=== PATIENT | female | born 1955 | race Caucasian/White ===

== ENCOUNTER 2017-01-08 04:44 | Emergency (ER) | payer MEDICARE, MEDICAID ==
[~2017-01-08] VITALS: Ht 152.4 cm; Wt 50.0 kg
[2017-01-08 04:56] VITALS: Ht 152.4 cm; Wt 50.0 kg
[2017-01-08 05:56] LABS: ADD SCAN DIFF NO
[2017-01-08 06:06] LABS: BASOPHILS % 0.3 % (0.0-2.0); EOSINOPHILS # 0.1 10^3/ul (0.0-0.5); EOSINOPHILS % 1.6 % (0.0-7.0); HEMATOCRIT 40.3 % (37.0-47.0); HEMOGLOBIN 13.6 g/dl (12.0-16.0); LYMPHOCYTES # 2.8 10^3/ul (0.8-2.9); LYMPHOCYTES % 31.9 % (15.0-51.0); MEAN CORPUSCULAR HEMOGLOBIN 31.6 pg (29.0-33.0); MEAN CORPUSCULAR HGB CONC 33.7 g/dl (32.0-37.0); MEAN CORPUSCULAR VOLUME 93.5 fl (82.0-101.0); MEAN PLATELET VOLUME 10.3 fl (7.4-10.4); MONOCYTE # 0.5 10^3/ul (0.3-0.9); MONOCYTES % 6.2 % (0.0-11.0); NEUTROPHIL # 5.2 10^3/ul (1.6-7.5); NEUTROPHILS % 59.8 % (39.0-77.0); PLATELET COUNT 268 10^3/UL (140-415); RED BLOOD COUNT 4.31 10^6/ul (4.20-5.40); RED CELL DISTRIBUTION WIDTH 12.5 % (11.5-14.5); WHITE BLOOD COUNT 8.7 10^3/ul (4.8-10.8)
[2017-01-08 06:18] LABS: INR 0.95; PROTIME 12.7 Sec (12.2-14.2)
[2017-01-08 06:19] LABS: PARTIAL THROMBOPLASTIN TIME 30.8 Sec (25.0-35.0)
[2017-01-08 06:23] LABS: ANION GAP 13 (8-16); BLOOD UREA NITROGEN 23 mg/dl (7-20); CALCIUM 9.4 mg/dl (8.4-10.2); CARBON DIOXIDE 27 mmol/L (21-31); CHLORIDE 105 mmol/L (97-110); CREATININE 0.77 mg/dl (0.44-1.00); GLUCOSE 109 mg/dl (70-220); POTASSIUM 3.9 mmol/L (3.5-5.1); SODIUM 141 mmol/L (135-144)
[2017-01-08] MEDS ORDERED: MIRT15TA5 PO (06:37)
[2017-01-08] MEDS ORDERED: QUET25TA33 PO (06:37)
[2017-01-08] MEDS ORDERED: CLON0.5T4 PO (06:37)
[2017-01-08] MEDS ORDERED: GABA300C16 PO (06:37)
[2017-01-08] MEDS ORDERED: CARB1TAB14 PO (06:37)
[2017-01-08] MEDS ORDERED: ROPI1TAB PO (06:37)
[2017-01-08] MEDS ORDERED: RASA0.5T PO (06:37)
[2017-01-08] MEDS ORDERED: BUPR300T36 PO (06:37)
[2017-01-08] MEDS ORDERED: AMAN100C65 PO (06:37)
[2017-01-08] MEDS ORDERED: [UNRECOGNIZED DRUG - CODE] PO (06:37)
[2017-01-08 06:50] LABS: TROPONIN-I < 0.012 ng/ml (0.00-0.12)
--- NOTE | 2017-01-08 07:10 | ERD ---
ER Documentation Chief Complaint Date/Time DATE: 01/08/17 TIME: 07:04 Chief Complaint left chest pain radiating to left arm HPI Patient is a 61-year-old female who presents with gradual onset, intermittent, moderate paresthesia to the left arm for the last 3 months. The patient reports that for the last 8 months, she has felt weak on her left side. She reports that she intermittently gets paresthesias in her left leg over the last 3 months, and also in the left arm. She reports that last night at 11:00 she started having paresthesias in the hand and forearm of her left arm. She denies any acute weakness to the left side of her body. She denies any change in her speech. She denies vertigo. The patient also reports having palpitations and a poorly described chest discomfort that lasted 1 hour from 11 PM to 12 AM last night. The patient has had approximately 5 visits to [facility] in the last few months for similar symptoms. Workups have been negative. Her symptoms have been attributed to anxiety. The patient currently endorses anxiety. The patient denies shortness of breath, denies vomiting. She does report nausea. ROS All systems reviewed and are negative except as per history of present illness. Medications Home Meds Reported Medications Ropinirole Hcl* (Ropinirole Hcl*) 1 Mg Tablet, 1 MG PO Q4, TAB 01/08/17 Rasagiline Mesylate* (Azilect*) 0.5 Mg Tablet, 0.5 MG PO DAILY, TAB 01/08/17 Quetiapine Fumarate* (Quetiapine Fumarate*) 25 Mg Tablet, 25 MG PO HS, TAB 01/08/17 Mirtazapine* (Mirtazapine*) 15 Mg Tablet, 15 MG PO HS, TAB 01/08/17 Gabapentin* (Gabapentin*) 300 Mg Capsule, 300 MG PO DAILY, #60 CAP 01/08/17 Clonazepam* (Clonazepam*) 0.5 Mg Tablet, 0.5 MG PO BID, TAB 01/08/17 Wcogpzrfe-Hivrtoff-Rlgcpjnmfq (Stalevo 150) 37.5-200-150 Mg Tablet, 1 EACH PO BID, TAB 01/08/17 Rywtjpgre-Szvygsku-Noqzykfskk (Stalevo 125) 31.25-200-125 Mg Tablet, 1 EACH PO TID, TAB 01/08/17 Bupropion Hcl* (Bupropion XL*) 300 Mg Tab.sr.24h, 300 MG PO DAILY, TAB.SA 01/08/17 Amantadine Hcl* (Amantadine Hcl*) 100 Mg Capsule, 100 MG PO TID, #60 CAP 01/08/17 Allergies Allergies: Coded Allergies: No Known Allergy (Unverified , 01/08/17) PMhx/Soc Past medical history: Parkinson's disease Past surgical history: Unknown neck surgery, deep brain stimulator Social history: Denies tobacco or alcohol. History of Surgery: Yes (RT KNEE 2006) Anesthesia Reaction: No Hx Neurological Disorder: Yes (PARKINSON DX 2006) Hx Respiratory Disorders: No Hx Cardiac Disorders: No Hx Psychiatric Problems: Yes (CURRENTLY ON WELLBUTRIN) Hx Miscellaneous Medical Probl: No Hx Alcohol Use: No Hx Substance Use: No Hx Tobacco Use: No Smoking Status: Never smoker FmHx Family History: No coronary disease, No diabetes Physical Exam Vitals Vital Signs Date Time Temp Pulse Resp B/P Pulse Ox O2 Delivery O2 Flow Rate FiO2 01/08/17 09:08 97.9 80 20 126/77 99 Room Air 01/08/17 07:35 98.2 78 16 135/76 99 Room Air 01/08/17 05:28 18 155/81 98 Room Air 01/08/17 04:56 99.3 85 18 151/99 98 Physical Exam Const: Alert, no acute distress Head: Atraumatic Eyes: Normal Conjunctiva, no pallor, no icterus ENT: Normal External Ears, Nose and Mouth. Mucous membranes moist Neck: Full range of motion. No meningismus. No JVD Resp: Clear to auscultation bilaterally, no wheezes, no rales Cardio: Regular rate and rhythm, no murmurs Abd: Soft, non tender, non distended. No rebound or guarding Skin: No petechiae or rashes Back: No midline or flank tenderness Ext: No cyanosis, or edema Neur: Awake and alert, masked facies, rapid monotone speech, cranial nerves II through XII intact bilaterally, strength and sensation intact in 4 extremities. No pronator drift. Psych: Appears slightly anxious Result Diagram: 01/08/1752501/08/17525 Results 24 hrs Laboratory Tests Test 01/08/17 05:26 7/8/17 08:00 White Blood Count 8.710^3/ul Red Blood Count 4.3110^6/ul Hemoglobin 13.6g/dl Hematocrit 40.3% Mean Corpuscular Volume 93.5fl Mean Corpuscular Hemoglobin 31.6pg Mean Corpuscular Hemoglobin Concent 33.7g/dl Red Cell Distribution Width 12.5% Platelet Count 51808^3/UL Mean Platelet Volume 10.3fl Neutrophils % 59.8% Lymphocytes % 31.9% Monocytes % 6.2% Eosinophils % 1.6% Basophils % 0.3% Nucleated Red Blood Cells % 0.0/100WBC Neutrophils # 5.210^3/ul Lymphocytes # 2.810^3/ul Monocytes # 0.510^3/ul Eosinophils # 0.110^3/ul Basophils # 0.010^3/ul Nucleated Red Blood Cells # 0.010^3/ul Prothrombin Time 12.7Sec Prothrombin Time Ratio 1.0 INR International Normalized Ratio 0.95 Activated Partial Thromboplast Time 30.8Sec Sodium Level 141mmol/L Potassium Level 3.9mmol/L Chloride Level 105mmol/L Carbon Dioxide Level 27mmol/L Anion Gap 13 Blood Urea Nitrogen 23mg/dl Creatinine 0.77mg/dl Glucose Level 109mg/dl Calcium Level 9.4mg/dl Troponin I < 0.012ng/ml Urine Color SARAH Urine Clarity CLEAR Urine pH 6.0 Urine Specific [place] 1.011 Urine Ketones NEGATIVEmg/dL Urine Nitrite NEGATIVEmg/dL Urine Bilirubin NEGATIVEmg/dL Urine Urobilinogen NEGATIVEmg/dL Urine Leukocyte Esterase 1+Nicole/ul Urine Microscopic RBC 0/HPF Urine Microscopic WBC 1/HPF Urine Bacteria FEW/HPF Urine Hemoglobin NEGATIVEmg/dL Urine Glucose NEGATIVEmg/dL Urine Total Protein NEGATIVEmg/dl Procedures/MDM EKG read by me: Time 10/09/1957, rate 84 Rhythm: Normal sinus [place]: Normal Intervals: Normal ST-T waves: T-wave inversions in anterior leads do not appear ischemic Ectopy: No Q-waves: No Impression: No evidence of ischemia or arrhythmia MDM: Patient is a 61-year-old female with advanced Parkinson's disease who presents with recurrent left arm and leg paresthesias and palpitations for the last 3 months. She has had 5 prior ER visits at an outside hospital which have not revealed a diagnosis. She acknowledges anxiety. She has no focal weakness on her neurological exam in the ER and no sensory deficit at this time. Patient had a single episode of chest discomfort last night, but has a nonischemic EKG and a negative troponin. A head CT was performed given that the patient has had complaints of left-sided sensorimotor symptoms that have been chronic for the last 8 months, and shows no significant abnormality. Advised the patient and her daughter that the patient needs to follow-up with her neurologist and PMD given these chronic recurrent symptoms. I suspect that anxiety may be a contributing factor. I did advise the patient and daughter that she should return to ER if she has any symptoms that do not spontaneously resolve or that are more dramatic than what she has previously experienced. Departure Diagnosis: Primary Impression: Paresthesia Additional Impressions: Palpitations Anxiety Condition: Stable LYLY SANFORD MD Jan 08, 2017 07:09
--- NOTE | 2017-01-08 07:17 | RADRPT ---
PROCEDURE: CHEST - 1 VIEW CLINICAL INDICATION: 61-year-old female with chest pain. TECHNIQUE: A single frontal AP upright portable view of the chest was performed. The images were reviewed on a PACS workstation. COMPARISON: None. FINDINGS: There is a generator overlying the right lower chest with electrodes extending into the right neck r egion. The cardiomediastinal silhouette is within normal limits. Coronary artery calcifications ar e present. There is calcification of the thoracic aortic arch. There is no evidence for an infiltr ate. There is no evidence for congestive heart failure. There is no evidence for pneumothorax. Ther e is a plate and screws identified within the lower cervical spine from prior fusion. IMPRESSION: 1. Thoracic aortic arch and coronary artery calcifications. 2. Generator right lower chest with electrodes extending into the right neck region. 3. Prior cervical fusion. .Jesús Hung MD, Date Time Electronically viewed and signed by .Jesús Hung MD, on 01/08/2017 07:17 .M/
[2017-01-08 08:29] LABS: ADD UMIC YES; UR ASCORBIC ACID NEGATIVE (NEGATIVE); UR BACTERIA FEW /HPF (NONE SEEN); UR BILIRUBIN (Dip) NEGATIVE (NEGATIVE); UR BLOOD (Dip) NEGATIVE (NEGATIVE); UR CLARITY CLEAR (CLEAR); UR COLOR AMBER (YELLOW); UR GLUCOSE (Dip) NEGATIVE (NEGATIVE); UR KETONES (Dip) NEGATIVE (NEGATIVE); UR LEUKOCYTE ESTERASE (Dip) 1+ Leu/ul (NEGATIVE); UR NITRITE (Dip) NEGATIVE (NEGATIVE); UR RBC 0 /HPF (0-5); UR SPECIFIC GRAVITY (Dip) 1.011 (1.003-1.030); UR TOTAL PROTEIN (Dip) NEGATIVE (NEGATIVE); UR UROBILINOGEN (Dip) NEGATIVE (NEGATIVE)
--- NOTE | 2017-01-08 08:50 | RADRPT ---
PROCEDURE: CT Brain without contrast. CLINICAL INDICATION: Paresthesias. TECHNIQUE: CT scan of the brain was performed from the skull base through the vertex without contrast. Coronal and sagittal reformations were performed. The exam CTDI = 45.01 mGy and the DLP = 720.23 mGy-cm. One or more of the following dose reduction techniques were used: - Automated exposure control. - Adjustment of the mA and/or kV according to patient size. - Use of iterative reconstruction technique. COMPARISON: None available FINDINGS: There are bilateral deep brain stimulator with the lead tips terminating at the basal ganglia bilate rally. There is associated beam hardening artifact, which partially obscures the surrounding structu res. There is no hydrocephalus, hemorrhage, herniation, or mass lesion. There is no intra or extra- axial fluid collection. The burgos/white matter differentiation is well preserved. The visualized paranasal sinuses and otomastoid air cells are well developed and pneumatized. The papo ny calvarium is intact. The surrounding soft tissues are unremarkable. IMPRESSION: 1. No acute intracranial abnormality. 2. Bilateral deep brain stimulator leads in place. RPTAT: EE .Tom Arzate MD, MD Date Time Electronically viewed and signed by .Tom Arzate MD, MD on 01/08/2017 08:50 .P/
[2017-01-08 09:08] VITALS: BP 126/77; PULSE 80; RESP 20; TEMP 97.9
== END 2017-01-08 09:18 | disposition home or self-care (01) ==
LOC: E/R 04:44
DX: R20.2 Paresthesia of skin (principal); R00.2 Palpitations; F41.9 Anxiety disorder, unspecified; G20 Parkinson's disease
CPT/HCPCS: 36415; 70450; 71010; 80048; 81001; 84484; 85025; 85610; 85730; 93005